=== PATIENT | male | born 1955 | race Caucasian/White ===

== ENCOUNTER 2016-08-29 21:24 | Emergency (ER) | payer BC, OTHER ==
[~2016-08-29] VITALS: Ht 177.8 cm; Wt 99.8 kg
--- NOTE | ~2016-08-29 | EKG ---
[place] [address] [address] [facility] [employer] [place] [address] ELECTROCARDIOGRAM REPORT Name: SJ PELAEZ Room #: [facility]P [facility]#: [id number] Admission: 08/29/16 Attend Phys: Discharge: 08/29/16 Date of : 53 Report #: [id number] THIS REPORT FOR: //name// [facility] ED Test Date: 2016-08-29 Test Time: 21:25:47 Pat Name: SJ PELAEZ Department: Room: Gender: M [employer] Attendant: TISH : 1955 Requested By: Stefani Franklin Order Number: [id number] MD: Stevie Flores Measurements Intervals [place] Rate: 85 P: 57 [place]: 153 QRS: -36 QRSD: 109 T: 58 QT: 398 QTc: 474 Interpretive Statements Sinus rhythm Left axis deviation Nonspecific ST-T wave abnormality No previous ECG available for comparison Electronically Signed On 08-31-2016 14:11:50 [employer] [place] by Stevie Flores [email or web address] <ELECTRONICALLY SIGNED> By: Stevie Flores MD, [facility] 08/31/16 1411 2125 24 Stevie Flores MD, FACC /EPI
[2016-08-29] MEDS ORDERED: [UNRECOGNIZED DRUG - REMARK] (21:38)
[2016-08-29] MEDS ORDERED: METFORMIN HCL500 MG PO (21:39)
[2016-08-29] MEDS ORDERED: LEVOTHYROXIN0.088 MG PO (21:39)
[2016-08-29] MEDS ORDERED: VITAMIN E400 UNIT (21:40)
[2016-08-29] MEDS ORDERED: ASPIR 8181 MG PO (21:40)
[2016-08-29 21:47] LABS: ABSOLUTE NEUTROPHILS 4.7 thou/uL (1.4-8.2); BASOPHILS 1.3 % (0.0-2.0); EOSINOPHILS 3.8 % (0.0-3.0); HEMATOCRIT 43.4 % (42.0-52.0); HEMOGLOBIN 15.2 gm/dL (14.0-18.0); MCH 30.5 pg (26.0-34.0); MCHC 34.9 % (28.0-37.0); MCV 87.3 fL (80.0-100.0); MONOCYTES 10.2 % (1.0-8.0); PLATELET COUNT 194 thou/uL (150-400); POLYS 50.7 % (36.0-66.0); RBC 4.97 mil/uL (4.50-6.00); RDW 13.1 % (10.5-14.5); WBC 9.2 thou/uL (4.0-11.0)
[2016-08-29 21:56] LABS: MANUAL DIFF NO
[2016-08-29 21:57] LABS: CALCIUM 8.7 mg/dL (8.5-10.1); CREATININE 0.7 mg/dL (0.6-1.3); POTASSIUM 3.6 mmol/L (3.5-5.1)
[2016-08-29 23:10] VITALS: BP 138/74
== END 2016-08-29 23:20 | disposition home or self-care (01) ==
LOC: EDBD 21:24 → ER 21:24
PROVIDERS: Emergency Medicine
DX: E11.649 Type 2 diabetes mellitus with hypoglycemia without coma (principal); F10.99 Alcohol use, unspecified with unspecified alcohol-induced disorder